=== PATIENT | male | born 1990 | race Caucasian/White ===

== ENCOUNTER 2017-03-15 23:22 | Emergency (ER) | payer OTHER ==
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
[2017-03-15] MEDS ORDERED: HYDROCODONE/APAP 5/325 TAB PO ONE (23:43)
[2017-03-15] MEDS ORDERED: IBUPROFEN 800 MG TAB PO ONE (23:43)
[2017-03-15] MEDS ORDERED: HYDROCOD/APAP 5/325 PREPACK#6 BTL TAKEHOME ONE (23:43)
[2017-03-16 01:17] VITALS: BP 134/73; PULSE 70; RESP 18; TEMP 97.9; O2SAT 96
== END 2017-03-16 01:16 | disposition home or self-care (01) ==
DX: S42.402A Unspecified fracture of lower end of left humerus, initial encounter for closed fracture (principal); S63.502A Unspecified sprain of left wrist, initial encounter; S70.11XA Contusion of right thigh, initial encounter; S83.8X1A Sprain of other specified parts of right knee, initial encounter; V18.4XXA Pedal cycle driver injured in noncollision transport accident in traffic accident, initial encounter; Y93.55 Activity, bike riding
CPT/HCPCS: L1830